=== PATIENT | female | born 1955 | race Caucasian/White ===

== ENCOUNTER → 2016-07-11 | Outpatient (CLI) | payer MEDICARE, OTHER ==
[2016-07-11 12:18] LABS: CH 31.2; CHCM 36.7; HCT 45.3 % (34.0-46.0); HDW 2.86; HGB 15.9 gm/dL (11.4-16.0); MCHC 35.2 g/dL (31.0-37.0); MCV 85.3 fL (80.0-100.0); Mean Platelet Volume 7.4; RBC 5.32 m/uL (3.80-5.40); RDW 12.7 % (11.5-15.5); WBC 5.3 k/uL (3.8-10.6)
[2016-07-11 13:06] LABS: ALT 41 U/L (9-52); AST 31 U/L (14-36); Alkaline Phosphatase 65 U/L (38-126); Anion Gap 9 mmol/L; Blood Urea Nitrogen 12 mg/dL (7-17); Calcium 9.4 mg/dL (8.4-10.2); Carbon Dioxide 27 mmol/L (22-30); Chloride 107 mmol/L (98-107); Cholesterol 152 mg/dL (<200); Glucose 99 mg/dL (74-99); HDL Cholesterol 64 mg/dL (40-60); Hemoglobin A1C 5.1 % (4.2-6.1); Non-African American GFR(MDRD) >60 (>60 ml/min/1.73 sqM); Potassium 4.3 mmol/L (3.5-5.1); Sodium 143 mmol/L (137-145); Total Bilirubin 1.3 mg/dL (0.2-1.3); Total Protein 7.4 g/dL (6.3-8.2); Triglycerides 67 mg/dL (<150)
[2016-07-11 16:52] LABS: Follicle Stimulating Hormone 39.1 mIU/mL
== END | disposition home or self-care (01) ==
LOC: LABWHC1 11:32
PROVIDERS: ATTEND Family Medicine
DX: Z00.00 Encounter for general adult medical examination without abnormal findings (principal); R53.83 Other fatigue; E34.9 Endocrine disorder, unspecified; B19.20 Unspecified viral hepatitis C without hepatic coma; R73.09 Other abnormal glucose; E55.9 Vitamin D deficiency, unspecified; E78.5 Hyperlipidemia, unspecified
CPT/HCPCS: 36415; 80053; 80061; 82306; 82672; 83001; 83002; 83036; 84144; 84403; 84443; 85027

== ENCOUNTER → 2016-09-30 | Outpatient (CLI) | payer MEDICARE, OTHER ==
[2016-10-01 15:09] LABS: LOG HCV IU/mL 6.61 (<1.08)
[2016-10-06 11:07] LABS: Mis test requested (Blood) Hep.C RNA Geno NS5a
== END | disposition home or self-care (01) ==
LOC: LABWHC1 10:37
PROVIDERS: ATTEND Physician Assistant
DX: B18.2 Chronic viral hepatitis C (principal)
CPT/HCPCS: 36415; 87522; 87902

== ENCOUNTER → 2017-02-13 | Outpatient (CLI) | payer MEDICARE, OTHER ==
[2017-02-13 13:32] LABS: CH 31.2; CHCM 36.8; HCT 43.8 % (34.0-46.0); HDW 2.81; HGB 15.8 gm/dL (11.4-16.0); MCH 30.8 pg (25.0-35.0); MCHC 36.1 g/dL (31.0-37.0); MCV 85.1 fL (80.0-100.0); Mean Platelet Volume 7.7; RBC 5.15 m/uL (3.80-5.40); RDW 13.3 % (11.5-15.5); WBC 6.5 k/uL (3.8-10.6)
[2017-02-13 13:39] LABS: ALT 33 U/L (9-52); AST 32 U/L (14-36); Alkaline Phosphatase 91 U/L (38-126); Anion Gap 11 mmol/L; Blood Urea Nitrogen 12 mg/dL (7-17); Calcium 9.7 mg/dL (8.4-10.2); Carbon Dioxide 23 mmol/L (22-30); Chloride 107 mmol/L (98-107); Glucose 94 mg/dL (74-99); Non-African American GFR(MDRD) >60 (>60 ml/min/1.73 sqM); Potassium 4.7 mmol/L (3.5-5.1); Sodium 141 mmol/L (137-145); Total Bilirubin 1.3 mg/dL (0.2-1.3); Total Protein 7.5 g/dL (6.3-8.2)
== END | disposition home or self-care (01) ==
LOC: LABWHC1 12:59
PROVIDERS: ATTEND Internal Medicine Gastroenterology
DX: B18.2 Chronic viral hepatitis C (principal)
CPT/HCPCS: 36415; 80053; 85027

== ENCOUNTER → 2017-05-13 | Outpatient (CLI) | payer MEDICARE, OTHER ==
--- NOTE | 2017-05-13 16:26 | CT ---
EXAMINATION TYPE: CT abdomen pelvis w con DATE OF EXAM: 05/13/2017 COMPARISON: NONE INDICATION: Left ovarian cyst DLP: 669.0 mGycm, Automated exposure control for dose reduction was used. CONTRAST: 100 mL of Omnipaque 300. Study performed with Oral Contrast TECHNIQUE: Axial images were obtained from above the diaphragm to the pubic rami in the axial plane a t 5 mm thick sections. Reconstructed images are reviewed on the computer in the coronal plane. FINDINGS: Limited CT sections are obtained the lung bases. The lung bases are clear. CT ABDOMEN: Liver: Normal Spleen: Normal Pancreas: Normal Adrenal glands: The adrenal glands are normal. Gallbladder: Cholesterol gallstones containing air are present within the gallbladder. Kidneys: No masses are evident. No hydronephrosis is present. No cysts are present. Delayed images were obtained through the kidneys, which remain unremarkable. Aorta: Vascular calcification is within the aorta. Inferior vena cava: Normal. CT PELVIS: Loops of bowel within the abdomen and pelvis are normal. Diverticular changes are within the desc ending colon and sigmoid colon. Appendix: Normal as visualized. Urinary bladder: Normal. Genitourinary structures: Uterus and adnexal regions are unremarkable. Osseous structures: No suspicious lytic or sclerotic lesions. IMPRESSIONS: 1. Diverticulosis without acute diverticulitis.
== END | disposition home or self-care (01) ==
LOC: RADCTMAIN 10:42
PROVIDERS: ATTEND Family Medicine
DX: K57.90 Diverticulosis of intestine, part unspecified, without perforation or abscess without bleeding (principal)
CPT/HCPCS: 74177; Q9967

== ENCOUNTER 2017-08-14 06:59 | Day surgery (SDC) | payer MEDICARE, OTHER ==
[2017-08-11 11:54] VITALS: BMI 29.9
[~2017-08-14 06:59] MED LIST: DEXAMETHASONE SOD PHOSPHATE 10 MG/ML 1 ML VIAL IV ONE; HEPARIN SODIUM,PORCINE 5,000 UNIT/ML 1 ML VIAL SQ ONE; LACTATED RINGERS 1,000 ML IV SCH; MIDAZOLAM 2 MG/2 ML VIAL IV PRN; ONDANSETRON 4 MG/2 ML VIAL IVP ONE; SCOPOLAMINE 1.5MG/72HR PATCH TRANSDERM ONE; ceFAZolin IN SWFI 2 GM/20 ML SYRINGE IVP ONE; fentaNYL (PF) 50 MCG/ML 2 ML AMP IV PRN
--- NOTE | 2017-08-14 07:57 | P.GSHP ---
History of Present Illness H&P Date: 08/14/17 Chief Complaint: Right upper quadrant pain, cholelithiasis This is a 61-year-old female referred from Dr. Sharon Arias. Patient presents today for laparoscopic cholestatic. She's had complaints of right quadrant pain. On workup found have evidence of cholecystitis and cholelithiasis. Past Medical History Past Medical History: Asthma, Liver Disease, Osteoarthritis (OA) Additional Past Medical History / Comment(s): GALLBLADDER DISORDER-frequent abd. pain, gas, bloating, diarrhea, takes beta savage for palpitations, Hx. Hep. C-no sx., recent sinus infection-now resolved History of Any Multi-Drug Resistant Organisms: None Reported Past Surgical History: Joint Replacement, Tubal Ligation Additional Past Surgical History / Comment(s): LT SHOULDER REPLACEMENT-LIMITED USE OF ARM. VARICOSE VEIN SX. COLONOSCOPY Past Anesthesia/Blood Transfusion Reactions: No Reported Reaction Smoking Status: Former smoker - Past Family History Mother Family Medical History: Cancer Medications and Allergies Home Medications Medication Instructions Recorded Confirmed Type Metoprolol Tartrate [Lopressor] 25 mg PO BID 06/18/17 08/14/17 History Montelukast [Singulair] 10 mg PO DAILY 06/18/17 08/11/17 History Albuterol Inhaler [Ventolin Hfa 1 - 2 puff INHALATION Q6HR PRN 08/11/17 History Inhaler] Cetirizine HCl [Zyrtec] 10 mg PO DAILY PRN 08/11/17 08/14/17 History Allergies Allergy/AdvReac Type Severity Reaction Status Date / Time acetaminophen Allergy rash, n/v, Verified 08/14/17 07:09 [From Darvocet-N] shaking, abd pain codeine Allergy rash, n/v, Verified 08/14/17 07:09 shaking, abd pain hydrocodone [From Vicodin] Allergy rash, n/v, Verified 08/14/17 07:09 shaking, abd pain propoxyphene Allergy rash, n/v, Verified 08/14/17 07:09 [From Darvocet-N] shaking, abd pain Surgical - Exam Vital Signs Temp Pulse Resp BP Pulse Ox 96.7 F L 98 16 140/92 100 08/14/17 07:21 08/14/17 07:21 08/14/17 07:21 08/14/17 07:21 08/14/17 07:21 - General well developed, no distress - Eyes PERRL - ENT normal pinna - Neck no masses - Respiratory normal expansion - Cardiovascular Rhythm: regular - Abdomen Abdomen: soft, non tender Assessment and Plan Assessment: Symptomatic cholelithiasis. We'll perform laparoscopic cholecystectomy.
[2017-08-14] MEDS ORDERED: NEOSTIGMINE 1 MG/ML 10 ML VIAL ONE (08:01)
[2017-08-14] MEDS ORDERED: PROPOFOL 10 MG/ML 20 ML VIAL IV ONE (08:01)
[2017-08-14] MEDS ORDERED: ROCURONIUM BROMIDE 10 MG/ML 10 ML VIAL IV ONE (08:01)
[2017-08-14] MEDS ORDERED: MIDAZOLAM 2 MG/2 ML VIAL ONE (08:01)
[2017-08-14] MEDS ORDERED: fentaNYL (PF) 50 MCG/ML 2 ML AMP ONE (08:01)
[2017-08-14] MEDS ORDERED: SUCCINYLCHOLINE CHLORIDE 100 MG/5 ML SYR IV ONE (08:01)
[2017-08-14] MEDS ORDERED: GLYCOPYRROLATE 0.2 MG/ML 2 ML VIAL ONE (08:01)
[2017-08-14] MEDS ORDERED: LIDOCAINE 1% INJ 10MG/ML (20 ML MDV) ONE (08:01)
[2017-08-14] MEDS ORDERED: BUPIVACAINE (PF) 0.5% 30 ML VIAL SQ ONE (08:24)
[2017-08-14 09:01] VITALS: TEMP 97.1
[2017-08-14] MEDS ORDERED: LABETALOL 5 MG/ML VIAL MDV IVP ONE (09:28)
[2017-08-14 10:03] VITALS: RESP 16
[2017-08-14] MEDS ORDERED: LACTATED RINGERS 1,000 ML IV ONE (10:03)
[2017-08-14 10:31] VITALS: BP 118/75; PULSE 73
--- NOTE | 2017-08-21 08:12 | P.OP ---
Date of Procedure: 08/14/17 Preoperative Diagnosis: Cholelithiasis Cholecystitis Postoperative Diagnosis: Cholelithiasis Cholecystitis Procedure(s) Performed: Laparoscopic cholecystectomy Anesthesia: TATO Surgeon: Valeriano Garcia Estimated Blood Loss (ml): 5 Pathology: other (Gallbladder) Condition: stable Disposition: PACU Description of Procedure: The patient was placed on the operating table. The patient received a general endotracheal tube anesthesia. The patients abdomen was prepped and draped in the usual sterile fashion. Through an infraumbilical stab incision, the fascia of the anterior abdominal wall was grasped with a pair of Kochers and then the Veress needle was placed in the peritoneal cavity. Position of the Veress needle was confirmed with positive drop test. The abdomen was then insufflated. After adequate insufflation, the 10 mm trocar was placed in the peritoneal cavity. Following this the laparoscope was placed in the peritoneal cavity. The patient was placed in the head-up, right side up position and then a 5 mm trocar was placed in the right lateral and right subcostal position under direct visualization. A 8 mm trocar was placed in the epigastric position. The gallbladder was grasped in the fundus and infundibulum. Traction on the gallbladder was placed in the lateral and the cephalad positions. The triangle of Calot was visualized.. The cystic duct was bluntly dissected until the union of the cystic duct and common bile duct was seen. The cystic duct was then divided and sealed with the Harmonic scissors. A PDS Endoloop was then placed throughout the cystic duct stump. The cystic artery divided and sealed with the Harmonic scissors. The gallbladder was then removed from the liver bed using Harmonic scissors. The gallbladder was then extracted through the epigastric port site. Operative field was checked for any bleeding spots and Harmonic scissors was used to coagulate the liver bed. The abdomen was irrigated. The trocars were removed. The skin was closed using interrupted 3-0 Vicryl suture. Dermabond dressing were applied. The patient tolerated the procedure well.
== END 2017-08-14 10:56 | disposition home or self-care (01) ==
LOC: OR 06:59
PROVIDERS: ATTEND Surgery
DX: K80.10 Calculus of gallbladder with chronic cholecystitis without obstruction (principal); I10 Essential (primary) hypertension; M19.90 Unspecified osteoarthritis, unspecified site; J45.909 Unspecified asthma, uncomplicated; Z87.891 Personal history of nicotine dependence; Z96.612 Presence of left artificial shoulder joint; Z79.899 Other long term (current) drug therapy; Z88.5 Allergy status to narcotic agent; Z88.8 Allergy status to other drugs, medicaments and biological substances; Z86.19 Personal history of other infectious and parasitic diseases; Z79.51 Long term (current) use of inhaled steroids
CPT/HCPCS: 88304; 47562; J2250; J1644; J1100; J2710; J2405; J2001; J3010; J0330; J2704; J0690

== ENCOUNTER → 2017-09-11 | Outpatient (CLI) | payer MEDICARE, OTHER ==
[2017-09-11 09:59] LABS: HCT 40.7 % (34.0-46.0); HGB 14.9 gm/dL (11.4-16.0); Hyperchromasia Slight; MCH 31.5 pg (25.0-35.0); MCHC 36.6 g/dL (31.0-37.0); Mean Platelet Volume 7.5; Platelet Count 190 k/uL (150-450); RBC 4.73 m/uL (3.80-5.40); RDW 13.1 % (11.5-15.5); WBC 10.3 k/uL (3.8-10.6)
[2017-09-11 10:07] LABS: ALT 42 U/L (9-52); AST 35 U/L (14-36); Albumin 4.2 g/dL (3.5-5.0); Alkaline Phosphatase 80 U/L (38-126); Anion Gap 12 mmol/L; Blood Urea Nitrogen 14 mg/dL (7-17); Calcium 9.8 mg/dL (8.4-10.2); Carbon Dioxide 27 mmol/L (22-30); Chloride 107 mmol/L (98-107); Glucose 119 mg/dL (74-99); Potassium 4.4 mmol/L (3.5-5.1); Sodium 146 mmol/L (137-145); Total Bilirubin 1.4 mg/dL (0.2-1.3); Total Protein 7.1 g/dL (6.3-8.2)
[2017-09-14 09:55] LABS: Hepatits C Virus RNA DETECTED (Not detected); LOG HCV IU/mL 5.94 (<1.08)
== END | disposition home or self-care (01) ==
LOC: LABWHC1 09-07 13:52
PROVIDERS: ATTEND Internal Medicine Gastroenterology
DX: B18.2 Chronic viral hepatitis C (principal)
CPT/HCPCS: 36415; 80053; 82172; 82247; 82977; 83010; 83883; 84460; 85027; 87522

== ENCOUNTER → 2017-10-26 | Outpatient (CLI) | payer MEDICARE, OTHER ==
[2017-10-26 14:50] LABS: HCT 43.5 % (34.0-46.0); HGB 14.9 gm/dL (11.4-16.0); MCH 29.1 pg (25.0-35.0); MCHC 34.4 g/dL (31.0-37.0); MCV 84.6 fL (80.0-100.0); Mean Platelet Volume 7.8; Platelet Count 196 k/uL (150-450); RBC 5.14 m/uL (3.80-5.40); RDW 12.3 % (11.5-15.5); WBC 6.7 k/uL (3.8-10.6)
[2017-10-26 15:05] LABS: Bilirubin, Delta 0.4 mg/dL (0.0-0.2); Bilirubin,Unconjugated 0.1 mg/dL (0.0-1.1); Total Bilirubin 0.5 mg/dL (0.2-1.3); Total Protein 6.7 g/dL (6.3-8.2)
[2017-10-27 14:49] LABS: Hepatits C Virus RNA DETECTED (Not detected); Hepatits C Virus RNA, Quant <12 IU/mL (<12); LOG HCV IU/mL <1.08 (<1.08)
== END | disposition home or self-care (01) ==
LOC: LABWHC1 14:29
PROVIDERS: ATTEND Physician Assistant
DX: B18.2 Chronic viral hepatitis C (principal)
CPT/HCPCS: 36415; 80076; 85027; 87522

== ENCOUNTER → 2018-04-06 | Outpatient (CLI) | payer MEDICARE, OTHER ==
--- NOTE | 2018-04-06 16:07 | CONS ---
CONSULTATION REASON FOR CONSULTATION: Sleep apnea. This is a 62-year-old female patient who is having episodes of palpitation. This has been an ongoing chronic problem for which the patient has seen Cardiology, and other secondary causes have been ruled out, including cardiac disease. Currently she is on metoprolol 25 mg twice a day and she is also on flecainide 50 mg twice a day. She has not been told that she has any problems with atrial fibrillation or any other atrial arrhythmias. During a recent evaluation by her careers adviser, sleep apnea was considered and the patient was referred to me for further evaluation. She does snore. She has excessive tiredness and sleepiness during the day and she has some degree of nocturia. She wakes up with a dry mouth and she has palpitations, as mentioned. She goes to bed somewhere between 11 p.m. and midnight and she wakes up at 8 a.m. in the morning. She averages around 8 hours of sleep. She wakes up once or twice in the middle of the night to use the bathroom. She sleeps on her side and her weight has been stable. She drinks coffee socially. No history of alcoholism. No history of IV drugs. No history of substance abuse. Family history is positive for sleep apnea, as her son, who is 44 years of age, is currently being treated for RUDDY. She is able to drive a car without any difficulty. She does not fall asleep while driving, nor has she been involved in a motor vehicle accident. PAST MEDICAL HISTORY: Palpitations. PAST SURGICAL HISTORY: 1. Tubal ligation. 2. Left shoulder replacement. 3. Cholecystectomy. DRUG ALLERGIES: 1. VICODIN. 2. CODEINE. 3. DARVOCET. MEDICATIONS: Medications include: 1. Metoprolol. 2. Singulair. 3. Flecainide. 4. Vitamin C. 5. Vitamin D. 6. Ventolin. SOCIAL HISTORY: Nonsmoker. No history of alcoholism. No history of IV drugs. FAMILY HISTORY: Positive for obstructive sleep apnea. Patient's son is 44 and has RUDDY. REVIEW OF SYSTEMS: Twelve-point review of systems was done. Positive findings are mentioned above in the history of present illness. No heartburn. No sweating. No sleeptalking. No sleepwalking. No restlessness in the lower extremities. No grinding of the teeth. No insomnia. No choking or gasping sensation at nighttime. No anxiety. No claustrophobia. No sexual dysfunction. No depression. No problems with memory or concentration. No history of seizures. No history of any focal neurological deficit or stroke. No altered mentation. PHYSICAL EXAMINATION: BP is 126/78, pulse 63, respirations 16, temperature 97.9, saturation 96% on room air. Weight is 183, height 5 feet 5 inches, BMI 30.4, Bolton score 7, neck size 14. GENERAL APPEARANCE: Calm, comfortable. Head is atraumatic, normocephalic. NECK: Supple. Mallampati class IV. No goiter or neck masses. She has also an overbite. LUNGS: Clear to auscultation. HEART: Heart sounds are regular rate and rhythm. Normal S1, S2. No S3. No murmurs. ABDOMEN: Soft, nontender. No organomegaly. EXTREMITIES: No edema. No cyanosis or clubbing. IMPRESSION: 1. Palpitations, chronic, under treatment currently on a combination of metoprolol and flecainide. No reported history of any cardiac tachyarrhythmias. 2. Snoring with increased daytime fatigue and suspected obstructive sleep apnea, currently under investigation. 3. Mallampati class IV. 4. Overbite. 5. Bronchial asthma. PLAN: 1. Will set up this patient for a screening polysomnogram, looking for any significant sleep breathing disorder contributing to her symptoms of palpitations. We will also look for any atrial tachyarrhythmias that could be potentially associated with sleep breathing disorders. 2. Encourage weight loss. 3. Sleep on the side. 4. Keep the head of the bed elevated during sleep. 5. Will continue to follow. MMODL / IJN: [id number] /
== END | disposition home or self-care (01) ==
LOC: SLEEP 14:14
PROVIDERS: ATTEND Internal Medicine Critical Care Medicine
DX: J45.909 Unspecified asthma, uncomplicated (principal); M26.29 Other anomalies of dental arch relationship; R00.2 Palpitations; R06.83 Snoring; R53.83 Other fatigue; Z79.899 Other long term (current) drug therapy; Z79.891 Long term (current) use of opiate analgesic; Z98.890 Other specified postprocedural states; Z90.49 Acquired absence of other specified parts of digestive tract
CPT/HCPCS: 99211

== ENCOUNTER → 2018-08-03 | Outpatient (CLI) | payer MEDICARE, OTHER ==
--- NOTE | 2018-08-03 17:21 | PN ---
PROGRESS NOTE This 62-year-old female patient has been complaining of palpitations. For that reason she was referred to me. Her palpitations are settled by the use of metoprolol and flecainide. Meanwhile, a sleep study was conducted. The sleep study report was given separately. In summary, the patient demonstrated adequate sleep architecture. The patient demonstrated adequate sleep efficiency. The patient demonstrated very mild obstructive sleep apnea an AHI of 5.7 that was essentially nonspecific. The cardiac rhythm was sinus. There were no cardiac arrhythmias noted. On today's evaluation, the results of the sleep study were discussed. The patient is not having any significant hypersomnia or sleepiness during the day. No significant oral dryness. She claims that she has gained at least 40-45 pounds and she is significantly up compared to her original body weight; and this has accumulated over the years. She has been trying to lose weight. No hypersomnia or sleepiness. She does not fall asleep during day-to-day activities or driving a car or while talking to other individuals. Asthma is stable. REVIEW OF SYSTEMS: Twelve-point review of systems was done. Positive findings were all mentioned above in the history of present illness. Of significance is the improvement in her symptoms of palpitations. No shortness of breath, heartburn or chest pain overnight. No altered mentation. No headaches. No drowsiness. No sleepiness. No sleepwalking or sleeptalking. No restlessness in the lower extremities. PHYSICAL EXAMINATION: BP is 129/76, pulse 64, respirations 16, temperature 98.0, saturation 96% on room air. Weight is 187, height 5 feet 5 inches, BMI 31.1. GENERAL APPEARANCE: Calm, comfortable. Head is atraumatic, normocephalic. NECK: Supple. No JVD. No goiter or neck masses. Mallampati class IV. LUNGS: Clear to auscultation. HEART: Heart sounds are regular rate and rhythm. Normal S1, S2. No S3, S4. No murmurs. ABDOMEN: Soft, nontender. No organomegaly. EXTREMITIES: No edema. No cyanosis or clubbing. NEUROLOGIC: Alert and oriented x3. No focal neurological deficits. PSYCHIATRIC: Negative for anxiety or depression. IMPRESSION: 1. Mild obstructive sleep apnea with apnea/hypopnea index of 5.7, REM-specific. 2. Minimal nocturnal oxygen desaturation. 3. Normal sleep architecture. 4. Primary snoring. 5. Palpitations without any significant cardiac arrhythmias as noted on the polysomnogram. 6. Normal sleep efficiency at 89%. PLAN: I do not intent to treat this patient with CPAP. I advised her to lose weight. Ten percent loss in her body weight should cause significant improvement in the sleep- breathing disorder which is mild in severity at baseline, and she should be able to completely eliminate her sleep apnea by losing weight. I do not see the need for any other alternative treatment at this point in time. If symptoms of snoring and apnea are still a concern, she may be evaluated for an oral appliance through her dentist. For the most part, I had a lengthy discussion with her, and she interested in losing weight. She will contact us back in a year's time for re-evaluation. CPAP therapy can always be introduced if her symptoms get worse. She was agreeable to this approach. We will see her back in followup. NATE / DEEPIKA: [id number] /
== END | disposition home or self-care (01) ==
LOC: SLEEP 15:06
PROVIDERS: ATTEND Internal Medicine Critical Care Medicine
DX: G47.33 Obstructive sleep apnea (adult) (pediatric) (principal); R00.2 Palpitations; R63.5 Abnormal weight gain; J45.909 Unspecified asthma, uncomplicated; Z68.31 Body mass index [BMI] 31.0-31.9, adult

== ENCOUNTER → 2018-09-01 | Outpatient (CLI) | payer MEDICARE, OTHER ==
[2018-09-01 15:02] LABS: HGB 15.1 gm/dL (11.4-16.0); MCH 30.4 pg (25.0-35.0); MCHC 34.2 g/dL (31.0-37.0); Mean Platelet Volume 6.9; Platelet Count 207 k/uL (150-450); RBC 4.95 m/uL (3.80-5.40); RDW 13.1 % (11.5-15.5); WBC 6.7 k/uL (3.8-10.6)
[2018-09-01 18:40] LABS: Albumin 4.2 g/dL (3.80-4.90); Albumin/Globulin Ratio 1.83 (1.60-3.17); Bilirubin, Conjugated 0.3 mg/dL (0.20-0.40); Bilirubin,Unconjugated 0.5 mg/dL; Globulin 2.3 g/dL (1.6-3.3); Total Bilirubin 0.8 mg/dL (0.2-1.2); Total Protein 6.5 g/dL (6.2-8.2)
[2018-09-02 13:57] LABS: Hepatits C Virus RNA Not detected (Not detected); Hepatits C Virus RNA, Quant <12 IU/mL (<12); LOG HCV IU/mL <1.08 (<1.08)
== END ==
LOC: LABWHC1 13:58
PROVIDERS: ATTEND Internal Medicine Gastroenterology
DX: B18.2 Chronic viral hepatitis C (principal)
CPT/HCPCS: 36415; 80076; 82105; 85027; 87522

== ENCOUNTER → 2019-02-02 | Outpatient (CLI) | payer MEDICARE, OTHER ==
[2019-02-02 18:20] LABS: African American GFR (CKD) 68.9 (60.0-200.0); Albumin 4.2 g/dL (3.80-4.90); Albumin/Globulin Ratio 1.83 (1.60-3.17); Anion Gap 6.7 mmol/L (4.00-12.00); Calcium 9.3 mg/dL (8.7-10.3); Carbon Dioxide 29.3 mmol/L (21.6-31.8); Globulin 2.3 g/dL (1.6-3.3); Potassium 4.3 mmol/L (3.5-5.5); Total Protein 6.5 g/dL (6.2-8.2)
== END | disposition home or self-care (01) ==
LOC: LABWHC1 14:11
PROVIDERS: ATTEND Internal Medicine Interventional Cardiology
DX: I10 Essential (primary) hypertension (principal)
CPT/HCPCS: 36415; 80053

== ENCOUNTER → 2019-02-22 | Outpatient (CLI) | payer MEDICARE, OTHER ==
--- NOTE | 2019-02-23 04:36 | CT ---
EXAMINATION TYPE: CT abdomen pelvis wo con DATE OF EXAM: 02/22/2019 COMPARISON: 05/13/2017 HISTORY: 63-year-old female right-sided abdominal pain, lower pelvic bloating and diarrhea. CT DLP: 841 mGycm. Automated exposure control for dose reduction was used. TECHNIQUE: Contiguous axial scanning of the abdomen and pelvis without IV contrast. Coronal and sagit liliana reconstructions performed. FINDINGS: The heart is borderline enlarged without pericardial effusion. Strandy atelectasis lower lungs withou t pleural effusion. Limited noncontrast evaluation of the liver, adrenal glands, kidneys, spleen, and pancreas show no gr oss abnormality. Punctate density gallbladder fossa may relate to prior cholecystectomy. No dilated small bowel, free fluid, or free air. Appendix is not discretely identified. Generalized colonic diverticulosis with mild to moderate stool burden. No pericolonic inflammatory ch everardo. No mesenteric or retroperitoneal lymphadenopathy identified. There is a 1.8 cm fusiform hypodense str ucture in the right retrocrural space that seen previously. Suspect a dilated lymphatic channel/ciste rna chyli in the right retrocrural space. Follow-up can be performed as this was not seen previously. Prominent fluid filled small bowel loops hanging low in the pelvis. Bladder nondistended. Uterus and ovaries are visualized. Slight pelvic floor relaxation with the base of bladder projecting at or just below the pubococcygeal line. Surgical clips in the right inguinal region. Some varices noted here. No abnormal fluid collection the pelvis or pelvic lymphadenopathy. Bones: Degenerative disc disease L5-S1. No osseous destructive process. IMPRESSION: 1. Prominent fluid-filled small bowel loops angle in the pelvis. Correlate for nonspecific mild ente ritis. 2. Slight pelvic floor relaxation. 3. Dilated fusiform structure measuring 1.8 cm in the right retrocrural space not seen previously. S uspect a distended cisterna chyli. Short interval follow-up recommended as this was not seen previous ly. 4. Generalized colonic diverticulosis without evidence for acute diverticulitis.
== END | disposition home or self-care (01) ==
LOC: RADCTMAIN 12:53
PROVIDERS: ATTEND Family Medicine
DX: K57.30 Diverticulosis of large intestine without perforation or abscess without bleeding (principal); K59.8 Other specified functional intestinal disorders; R10.2 Pelvic and perineal pain; R14.0 Abdominal distension (gaseous)
CPT/HCPCS: 74176

== ENCOUNTER → 2019-03-07 | Outpatient (CLI) | payer MEDICARE, OTHER ==
[2019-03-07 12:59] LABS: HCT 42.2 % (34.0-46.0); HGB 15.3 gm/dL (11.4-16.0); MCH 30.8 pg (25.0-35.0); MCHC 36.2 g/dL (31.0-37.0); MCV 85.2 fL (80.0-100.0); Mean Platelet Volume 7.1; Platelet Count 188 k/uL (150-450); RBC 4.96 m/uL (3.80-5.40); RDW 12.7 % (11.5-15.5); WBC 6.5 k/uL (3.8-10.6)
[2019-03-07 19:28] LABS: Albumin 4.2 g/dL (3.80-4.90); Bilirubin, Conjugated 0.2 mg/dL (0.20-0.40); Bilirubin,Unconjugated 0.6 mg/dL; Globulin 2.1 g/dL (1.6-3.3); Total Bilirubin 0.8 mg/dL (0.3-1.2); Total Protein 6.3 g/dL (6.2-8.2)
[2019-03-07 19:32] LABS: Alpha Fetoprotein, Tumor Mkr <2.5 ng/mL (0.0-7.9)
[2019-03-07 21:14] LABS: Gliadin AB IgA, Deaminated NEGATIVE (NEGATIVE); Gliadin AB IgG, Deaminated NEGATIVE (NEGATIVE)
== END | disposition home or self-care (01) ==
LOC: LABWHC1 12:32
PROVIDERS: ATTEND Internal Medicine Gastroenterology
DX: K58.9 Irritable bowel syndrome, unspecified (principal); B18.2 Chronic viral hepatitis C
CPT/HCPCS: 36415; 80076; 82105; 83516; 85027

== ENCOUNTER → 2019-03-24 | Outpatient (CLI) | payer MEDICARE, OTHER ==
--- NOTE | 2019-03-24 13:04 | US ---
EXAMINATION TYPE: US liver DATE OF EXAM: 03/24/2019 COMPARISON: Ultrasound dated 09/20/2015 CLINICAL HISTORY: B18.2 CHR VIRAL HEP C. Hx Hepatitis C. NPO. GB removed. EXAM MEASUREMENTS: Liver Length: 17.4 cm CBD: 0.4 cm Right Kidney: 9.5 x 3.7 x 4.4 cm Pancreas: Tail obscured by overlying bowel gas. Liver: Very mildly coarsened echotexture. No discrete mass is seen. Gallbladder: Surgically absent Evidence for sonographic Chacon's sign: wnl CBD: wnl Right Kidney: wnl IMPRESSION: Very mild coarsened hepatic echotexture. This relates to the patient's known underlying h epatocellular disease. No suspicious mass is seen.
== END | disposition home or self-care (01) ==
LOC: RADUSWWP 12:28
PROVIDERS: ATTEND Internal Medicine Gastroenterology
DX: K76.89 Other specified diseases of liver (principal); B18.2 Chronic viral hepatitis C
CPT/HCPCS: 76705

== ENCOUNTER → 2020-01-05 | Outpatient (CLI) | payer MEDICARE ==
[2020-01-05 11:11] LABS: HCT 43.5 % (34.0-46.0); HGB 15.3 gm/dL (11.4-16.0); MCH 31.1 pg (25.0-35.0); MCHC 35.1 g/dL (31.0-37.0); MCV 88.6 fL (80.0-100.0); Mean Platelet Volume 7.9; Platelet Count 155 k/uL (150-450); RBC 4.91 m/uL (3.80-5.40); WBC 5.7 k/uL (3.8-10.6)
[2020-01-05 11:31] LABS: Appearance,Urine Clear (Clear); Bilirubin,Urine Negative (Negative); Blood,Urine Negative (Negative); Color,Urine Light Yellow; Glucose,Urine (UA) Negative (Negative); Ketones,Urine Negative (Negative); Leukocyte Esterase,Urine Trace (Negative); Nitrite,Urine Negative (Negative); PH, Urine 7.5 (5.0-8.0); Protein,Urine Negative (Negative); RBC,Urine <1 /hpf (0-5); Specific Gravity,Urine 1.006 (1.001-1.035); Squamous Epithelial Cell,Urine 1 /hpf (0-4); Urobilinogen,Urine <2.0 mg/dL (<2.0); WBC,Urine <1 /hpf (0-5)
[2020-01-05 16:51] LABS: African American GFR (CKD) 77.8 (60.0-200.0); Anion Gap 6.9 mmol/L (4.00-12.00); BUN/Creat Ratio 14.44 Ratio (12.00-20.00); Calcium 9.3 mg/dL (8.7-10.3); Carbon Dioxide 27.1 mmol/L (21.6-31.8); Chol/HDL Ratio 2.75; LDL Cholesterol,Calculated 74.2 mg/dL (0.0-131.0); Non-African American GFR(CKD) 67.1 (60.0-200.0); Potassium 4.4 mmol/L (3.5-5.5); VLDL Calculation 14.8 mg/dL (5.00-40.00)
[2020-01-05 19:51] LABS: Hemoglobin A1C 5.2 % (4.0-6.0)
== END | disposition home or self-care (01) ==
LOC: LABWHC1 10:05
PROVIDERS: ATTEND Family Medicine
DX: Z00.00 Encounter for general adult medical examination without abnormal findings (principal); Z79.899 Other long term (current) drug therapy; R03.0 Elevated blood-pressure reading, without diagnosis of hypertension; Z83.49 Family history of other endocrine, nutritional and metabolic diseases
CPT/HCPCS: 36415; 80048; 80061; 81001; 83036; 84443; 85027

== ENCOUNTER → 2020-03-07 | Outpatient (CLI) | payer MEDICARE ==
[2020-03-07 11:01] LABS: HCT 44.8 % (34.0-46.0); HGB 15.7 gm/dL (11.4-16.0); MCH 30.4 pg (25.0-35.0); MCV 86.9 fL (80.0-100.0); Mean Platelet Volume 7.8; Platelet Count 193 k/uL (150-450); RBC 5.15 m/uL (3.80-5.40); RDW 12.7 % (11.5-15.5); WBC 6.8 k/uL (3.8-10.6)
[2020-03-07 18:49] LABS: Albumin 4.1 g/dL (3.80-4.90); Albumin/Globulin Ratio 1.86 (1.60-3.17); Bilirubin, Conjugated 0.4 mg/dL (0.20-0.40); Bilirubin,Unconjugated 0.7 mg/dL; Globulin 2.2 g/dL (1.6-3.3); Total Bilirubin 1.1 mg/dL (0.2-1.2); Total Protein 6.3 g/dL (6.2-8.2)
== END | disposition home or self-care (01) ==
LOC: LABWHC1 09:28
PROVIDERS: ATTEND Internal Medicine Gastroenterology
DX: B18.2 Chronic viral hepatitis C (principal)
CPT/HCPCS: 36415; 80076; 82105; 85027

== ENCOUNTER → 2020-03-30 | Outpatient (CLI) | payer MEDICARE ==
--- NOTE | 2020-03-30 13:15 | US ---
EXAMINATION TYPE: US liver DATE OF EXAM: 03/30/2020 COMPARISON: CT February 22, 2019 CLINICAL HISTORY: B18.2 Chronic Viral Hep C. TREATED FOR HEP C 2 YEARS AGO, FOLLOW UP EXAM, NO SYMPTO MS EXAM MEASUREMENTS: Liver Length: 14.2 cm Gallbladder Wall: Surgically absent CBD: 0.7 cm Right Kidney: 9.4 x 4.1 x 3.7 cm Pancreas: wnl Liver: wnl Gallbladder: Surgically absent Evidence for sonographic Chacon's sign: no CBD: normal for post cholecystectomy Right Kidney: wnl Visualized pancreas is unremarkable. IVC seen near hepatic dome. Visualized liver shows no mass or du ctal dilatation. No surrounding ascites. Gallbladder redemonstrated surgically absent. No right-sided hydronephrosis. IMPRESSION: No worrisome intrahepatic mass or intrahepatic ductal dilatation.
== END | disposition home or self-care (01) ==
LOC: RADUSWWP 11:50
PROVIDERS: ATTEND Internal Medicine Gastroenterology
DX: B18.2 Chronic viral hepatitis C (principal)
CPT/HCPCS: 76705

== ENCOUNTER → 2020-07-30 | Outpatient (CLI) | payer MEDICARE ==
--- NOTE | 2020-07-31 06:52 | CT ---
EXAMINATION TYPE: CT abdomen pelvis wo/w con DATE OF EXAM: 07/30/2020 HISTORY: Abnormal CT scan, right-sided pain with change in bowel habits CT DLP: 1262mGycm Automated Exposure Control for Dose Reduction was Utilized. CONTRAST: CT scan of the abdomen and pelvis is performed with oral and without and with IV Contrast, patient in jected with 100 mL of Isovue 300. COMPARISON: CT abdomen and pelvis February 22, 2019 and older CTs May 13, 2017 FINDINGS: LUNG BASES: Mild left greater than right bibasilar linear scarring and/or atelectasis. Heart size upp er limits of normal. LIVER/GB: Cholecystectomy clips redemonstrated PANCREAS: No significant abnormality is seen. SPLEEN: No significant abnormality is seen. ADRENALS: No significant abnormality is seen. KIDNEYS: No renal stones on noncontrast CT. Postcontrast images show symmetric cortical medullary upt ramila and excretion without concerning renal mass or hydronephrosis seen bilaterally. BOWEL: Oral contrast reaches level of proximal to mid sigmoid colon. No suspicious small or large bow el dilatation. Diverticula in the left and sigmoid colon are present. No CT evidence for acute divert iculitis UTERUS/ADNEXA: Anteverted uterus. Normal-sized ovaries. Single left-sided pelvic phlebolith. LYMPH NODES: No new greater than 1cm abdominal or pelvic lymph nodes are appreciated. OSSEOUS STRUCTURES: Moderate disc space narrowing with vacuum disc phenomenon and lower lumbar levels .. OTHER: Stable 1.1 cm low dense round structure right retrocrural space axial image 12, presumed benig n, possible distended cisterna chyli. IMPRESSION: No new or acute findings are evident. Persistent distal colonic diverticulosis without CT evidence for acute diverticulitis.
== END | disposition home or self-care (01) ==
LOC: RADCTMAIN 15:15
PROVIDERS: ATTEND Family Medicine
DX: K57.30 Diverticulosis of large intestine without perforation or abscess without bleeding (principal)
CPT/HCPCS: 74178; Q9967 ×2

== ENCOUNTER → 2020-10-23 | Outpatient (CLI) | payer MEDICARE ==
--- NOTE | 2020-10-23 14:38 | MM ---
Reason for exam: clinical finding. Last mammogram was performed 6 months ago. History: Patient is postmenopausal. Family history of breast cancer in mother at age 65. Benign cyst aspiration of the left breast. Benign excisional biopsy of the right breast. Indicated problem(s): pain in the left breast. Physical Findings: Nurse did not find any significant physical abnormalities on exam. MG 3D Diag Mammo W/Cad LT CC and MLO view(s) were taken of the left breast. Prior study comparison: April 10, 2020, mammogram. March 30, 2018, mammogram. There are scattered fibroglandular densities. There is no discrete abnormality including area of concern. No significant new findings when compared with previous films. These results were verbally communicated with the patient and result sheet given to the patient on 10/23/20. ASSESSMENT: Benign, BI-RAD 2 RECOMMENDATION: Routine screening mammogram of both breasts in 1 year. Manage on a clinical basis with regard to pain.
--- NOTE | 2020-10-23 15:06 | XR ---
EXAMINATION TYPE: XR wrist complete RT DATE OF EXAM: 10/23/2020 COMPARISON: None HISTORY: Injury 2 weeks prior TECHNIQUE: 4 view right wrist FINDINGS: No acute fractures are identified. There appears to be some degenerative change of the trap ezium. Soft tissues appear normal. The distal carpal row laterally has some degenerative change. Follow up exams can be performed 7-10 days from acute trauma for continued pain. Nuclear medicine bon e scan could be performed for pain at the anatomic snuff box. IMPRESSION: 1. No acute osseous abnormality identified. 2. Lateral carpal degenerative joint changes.
== END ==
LOC: RADMAMWWP 13:34
PROVIDERS: ATTEND Family Medicine
DX: R92.8 Other abnormal and inconclusive findings on diagnostic imaging of breast (principal); M19.031 Primary osteoarthritis, right wrist
CPT/HCPCS: 73110; 77065; G0279; 77061

== ENCOUNTER → 2021-03-13 | Outpatient (CLI) | payer MEDICARE ==
[2021-03-13 18:54] LABS: MCH 30.9 pg (27.0-32.0); MCHC 35.7 g/dL (32.0-37.0); MCV 86.6 fL (80.0-97.0); Mean Platelet Volume 10.5 fL (9.5-12.2); Platelet Count 191 X 10*3/uL (140-440); RBC 4.85 X 10*6/uL (4.10-5.20); RDW 12.7 % (11.5-14.5); WBC 6.68 X 10*3/uL (4.50-10.00)
[2021-03-14 03:22] LABS: Albumin/Globulin Ratio 1.6 (1.60-3.17); Bilirubin, Conjugated 0.3 mg/dL (0.20-0.40); Bilirubin,Unconjugated 0.4 mg/dL; Globulin 2.5 g/dL (1.6-3.3); Total Bilirubin 0.7 mg/dL (0.2-1.2); Total Protein 6.5 g/dL (6.2-8.2)
== END | disposition home or self-care (01) ==
LOC: LABWHC1 12:50
PROVIDERS: ATTEND Internal Medicine Gastroenterology
DX: B18.2 Chronic viral hepatitis C (principal)
CPT/HCPCS: 36415; 80076; 82105; 85027

== ENCOUNTER → 2022-03-17 | Outpatient (CLI) | payer MEDICARE ==
[2022-03-17 15:06] LABS: HCT 42.7 % (37.2-46.3); HGB 15.1 g/dL (12.0-15.0); MCH 29.8 pg (27.0-32.0); MCHC 35.4 g/dL (32.0-37.0); MCV 84.2 fL (80.0-97.0); Mean Platelet Volume 10.7 fL (9.5-12.2); NRBC Per 100 WBC 0 /100 WBCS (0.0-0.0); Platelet Count 210 X 10*3/uL (140-440); RBC 5.07 X 10*6/uL (4.10-5.20); RDW 13.2 % (11.5-14.5); WBC 6.08 X 10*3/uL (4.50-10.00)
[2022-03-17 15:22] LABS: ALT 13 U/L (8-44); AST 26 U/L (13-35); Albumin 4.2 g/dL (3.8-4.9); Albumin/Globulin Ratio 1.35 (1.60-3.17); Alkaline Phosphatase 75 U/L (41-126); Bilirubin, Conjugated <0.20 mg/dL (0.20-0.40); Globulin 3.1 g/dL (1.6-3.3); Total Protein 7.3 g/dL (6.2-8.2)
== END | disposition home or self-care (01) ==
LOC: LABWHC1 11:00
PROVIDERS: ATTEND Internal Medicine Gastroenterology
DX: B18.2 Chronic viral hepatitis C (principal)
CPT/HCPCS: 36415; 80076; 82105; 85027

== ENCOUNTER → 2022-07-02 | Outpatient (CLI) | payer MEDICARE ==
--- NOTE | 2022-07-02 10:52 | US ---
EXAMINATION TYPE: US liver DATE OF EXAM: 07/02/2022 COMPARISON: NONE CLINICAL HISTORY: B18.2 chronic hep c. TECHNIQUE: Multiple sonographic images of the right upper quadrant are obtained. FINDINGS: EXAM MEASUREMENTS: Liver Length: 17.8 cm Gallbladder Wall: Surgically absent CBD: 0.7 cm Right Kidney: 9.8 x 4.0 x 4.4 cm Pancreas: Tail obscured by overlying bowel gas Liver: measures upper limits of normal, mildly heterogenous Gallbladder: Surgically absent Evidence for sonographic Chacon's sign: no CBD: wnl Right Kidney: somewhat obscured by overlying bowel gas, portions visualized wnl IMPRESSION: Hepatocellular disease likely secondary to patient's known hepatitis C. No suspicious masses.
== END | disposition home or self-care (01) ==
LOC: RADUSWWP 09:28
PROVIDERS: ATTEND Internal Medicine Gastroenterology
DX: B18.2 Chronic viral hepatitis C (principal); K76.9 Liver disease, unspecified
CPT/HCPCS: 76705

== ENCOUNTER → 2022-11-10 | Outpatient (CLI) | payer MEDICARE ==
--- NOTE | 2022-11-10 11:10 | US ---
EXAMINATION TYPE: US thyroid st tissue head/neck DATE OF EXAM: 11/10/2022 COMPARISON: NONE CLINICAL INDICATION: Female, 66 years old with history of E01.0 THYROMEGALY; primary care physician p alpated lump on pt. neck GLAND SIZE: Right Lobe: 4.9x2.6x2.3 cm Overall Parenchyma: heterogenous Left Lobe: 3.9x1.3x1.3 cm Overall Parenchyma: heterogenous Isthmus Thickness: 0.46 cm NODULES RIGHT: # of nodules measured on right: 1 1. 3.2 X 2.1 x 2.8 cm, mid mid, cystic or almost completely cystic, anechoic TR 3 nodule with septa tion, which is taller than wide, with smooth margins, without echogenic foci. LEFT: # of nodules measured on left: 2 1. 0.51 X 0.33 x 0.45 cm, upper mid, solid or almost completely solid, TR 4 hypoechoic nodule, whic h is taller than wide, with smooth margins, without echogenic foci. 2. 0.72 X 0.43 x 0.47 cm, lower mid, solid or almost completely solid, hypoechoic TR 4 nodule, whi ch is taller than wide, with smooth margins, without echogenic foci. Bilateral neck scanned, no evidence of lymphadenopathy. Gut Puller notes: Three most prominent nodules measured, several noted throughout, right lobe diffic ult to appreciate due to large nodule IMPRESSION: Thyroid ultrasound showing a few dominant nodules, the largest is a cystic 3.2 cm TR3 nodule on the r ight. FNA can be considered. A couple small TR4 nodules on the left measure 7 mm and 5 mm which can b e reassessed at follow-up.
== END | disposition home or self-care (01) ==
LOC: RADUSWWP 09:35
PROVIDERS: ATTEND Family Medicine
DX: E04.2 Nontoxic multinodular goiter (principal)
CPT/HCPCS: 76536

== ENCOUNTER → 2022-11-11 | Outpatient (CLI) | payer MEDICARE ==
--- NOTE | 2022-11-11 14:19 | CT ---
EXAMINATION TYPE: CT abdomen pelvis wo con CT DLP: 693.0 mGycm, Automated exposure control for dose reduction was used. DATE OF EXAM: 11/11/2022 12:56 PM COMPARISON: CT abdomen pelvis most recent from 07/30/2020, 02/22/2019 CLINICAL INDICATION:Female, 66 years old with history of R10.13 R10.9; epigastric/ right flank pain TECHNIQUE: Axial CT of the abdomen and pelvis. Sagittal and coronal reformats were created on a [employer] workstation. Contrast used: None Oral contrast used: without Oral none FINDINGS: LOWER CHEST: Left lower lobe pulmonary nodule measuring 4 mm stable back to at least 2019 ABDOMEN LIVER: Unremarkable GALLBLADDER AND BILE DUCTS: The gallbladder appears surgically absent. PANCREAS: Unremarkable. SPLEEN: Unremarkable. ADRENAL GLANDS: Unremarkable. KIDNEYS AND URETERS: No evidence of hydronephrosis or renal calculus. The ureters are unremarkable. PELVIS BLADDER: Unremarkable REPRODUCTIVE: Unremarkable. ABDOMEN & PELVIS STOMACH AND BOWEL: . Scattered diverticula are noted throughout the colon. No evidence of bowel obstr uction. The appendix was not definitively visualized. Small hiatal hernia present. PERITONEUM/RETROPERITONEUM: No evidence of pneumoperitoneum or free fluid. VASCULATURE: No evidence of aortic aneurysm. There is a dilated cisterna chyli at the level of the ao rtic hiatus. MUSCULOSKELETAL: No acute osseous abnormalities LYMPH NODES: No gross evidence for lymphadenopathy. SOFT TISSUE/ABDOMINAL WALL: Postsurgical change the right inguinal region with multiple surgical clip s. Tortuous vessels are seen in the anterior aspect of the bilateral lower extremities. Fat-containin g umbilical hernia. IMPRESSION: 1. No evidence for acute process in the epigastric region. There is a small hiatal hernia. 2. Scattered colonic diverticulosis. 3. Stable left lower lobe pulmonary nodule dating back to at least 2019.
== END | disposition home or self-care (01) ==
LOC: RADCTMAIN 12:17
PROVIDERS: ATTEND Family Medicine
DX: K57.30 Diverticulosis of large intestine without perforation or abscess without bleeding (principal); R91.1 Solitary pulmonary nodule; K44.9 Diaphragmatic hernia without obstruction or gangrene
CPT/HCPCS: 74176

== ENCOUNTER → 2022-12-24 | Outpatient (CLI) | payer MEDICARE ==
--- NOTE | 2022-12-25 08:08 | MM ---
Reason for Exam: Screening (asymptomatic). Last mammogram was performed 1 year(s) and 1 month(s) ago. Patient History: Menarche at age 14. First Full-Term at age 18. Postmenopausal. Benign Cyst Aspiration on the left side. Benign Excisional Biopsy on the right side. Mother had breast cancer, age 65. Risk Values: Emili 5 year model risk: 3.4%. NCI Lifetime model risk: 10.8%. Prior Study Comparison: 03/30/2018 Screening Mammogram, Unknown. 04/10/2020 Screening Mammogram, Unknown. 10/23/2020 Left Diagnostic Mammogram, [facility]. 12/09/2021 Bilateral MG screening mammo w CAD - 2, Unknown. Tissue Density: The breast tissue is heterogeneously dense. This may lower the sensitivity of mammography. Findings: Analyzed By CAD. There is no suspicious group of microcalcifications or new suspicious mass in either breast. Benign-appearing calcifications within both breasts. Overall Assessment: Benign, BI-RAD 2 Management: Screening Mammogram of both breasts in 1 year. A clinical breast exam by your physician is recommended on an annual basis and results should be correlated with mammographic findings. Note on Emili scores and lifetime risk: 1. A Emili score greater than 3% is considered moderate risk. If this is the case, consider specialist referral to assess eligibility for a risk reducing agent. If overall lifetime risk for the development of breast cancer is 20% or higher, the patient may qualify for future screening with alternating mammogram and breast MRI. Electronically signed and approved by: Arie Nuno D.O.
== END | disposition home or self-care (01) ==
LOC: RADMAMWWP 11:08
PROVIDERS: ATTEND Family Medicine
DX: Z12.31 Encounter for screening mammogram for malignant neoplasm of breast (principal); Z78.0 Asymptomatic menopausal state; Z80.3 Family history of malignant neoplasm of breast
CPT/HCPCS: 77063; 77067

== ENCOUNTER 2023-02-27 05:54 | Day surgery (SDC) | payer MEDICARE ==
[2023-02-25 10:18] VITALS: BMI 31.9
[2023-02-27 06:37] VITALS: TEMP 97.5
[2023-02-27] MEDS: LACTATED RINGERS 1,000 ML IV SCH ×2 (06:44→07:02)
[2023-02-27] MEDS ORDERED: LIDOCAINE 2% INJ 20 MG/ML (2 ML VIAL) ONE (07:03)
[2023-02-27] MEDS ORDERED: PROPOFOL 10 MG/ML 20 ML VIAL IV ONE (07:03)
--- NOTE | 2023-02-27 07:26 | P.PCN ---
Date of Procedure: 02/27/23 Procedure(s) Performed: Brief history: Patient is a pleasant 67-year-old white female scheduled for an elective upper endoscopy as well as colonoscopy as a part of evaluation of reflux and history of GERD and change in bowel habits and alternating diarrhea and constipation for the last several months duration. Procedure performed: Esophagogastroduodenoscopy with biopsy Colonoscopy with biopsy Preoperative diagnosis: Long-standing history of GERD Change in bowel habits Anesthesia: MAC Procedure: After informed consent was obtained from the patient was brought into the endoscopy unit and IV sedation was administered by anesthesia under continuous monitoring. Initially upper endoscopy was done. The Olympus GF 160 video endoscope was inserted inserted into the mouth and esophagus intubated without any difficulty and was gradually advanced into the stomach and duodenum and carefully examined. The bulb and second part of the duodenum appeared normal. Biopsies were done from the duodenum to evaluate for celiac disease. The scope was then withdrawn into the stomach adequately insufflated with air and upon careful examination the antrum had mild gastritis. Biopsies were done from this area. Mucosa of the body, cardia and fundus appeared normal. The scope was then withdrawn into the esophagus. The GE junction was located at 40 cm to the incisors. It appeared regular with no erythema erosions or ulcerations. Rest of the esophagus appeared normal. Patient tolerated the procedure well. At this time the patient continued to remain sedation. Initial digital rectal examination was normal. Olympus CF 160 video colonoscope was then inserted into the rectum and gradually advanced to the cecum without any difficulty. Careful examination was performed as the scope was gradually being withdrawn. The prep was excellent. The cecum, ascending colon, transverse colon, descending colon, sigmoid colon and rectum appeared normal. Scattered sigmoid diverticulosis. Random biopsies were done from ascending and descending colon to evaluate for microscopic/collagenous colitis. Retroflexion was performed in the rectum and no lesions were noted. Patient tolerated the procedure well. Impression: 1. Upper endoscopy revealed mild antral gastritis but no evidence of esophagiti s or Gold's esophagus 2. Colonoscopy revealed scattered sigmoid diverticulosis but no evidence of colitis or colorectal neoplasia Recommendations: Findings of this examination were discussed with the patient as well as her family. She was advised to follow with the biopsy results. Continue with her current medications and follow antireflux measures. Recommend repeat screening colonoscopy in 10 years.
[2023-02-27 07:36] VITALS: RESP 16
[2023-02-27 08:08] VITALS: BP 154/70; PULSE 66
== END 2023-02-27 08:23 | disposition home or self-care (01) ==
LOC: ORWHC2ENDO 05:54
PROVIDERS: ATTEND Internal Medicine Gastroenterology
DX: K29.50 Unspecified chronic gastritis without bleeding (principal); K57.30 Diverticulosis of large intestine without perforation or abscess without bleeding; K21.9 Gastro-esophageal reflux disease without esophagitis; K58.9 Irritable bowel syndrome, unspecified; I10 Essential (primary) hypertension; I48.91 Unspecified atrial fibrillation; J45.909 Unspecified asthma, uncomplicated; Z79.01 Long term (current) use of anticoagulants; Z88.5 Allergy status to narcotic agent; Z79.811 Long term (current) use of aromatase inhibitors; Z79.899 Other long term (current) drug therapy; Z96.612 Presence of left artificial shoulder joint; Z98.49 Cataract extraction status, unspecified eye; Z98.51 Tubal ligation status; Z86.19 Personal history of other infectious and parasitic diseases; Z79.51 Long term (current) use of inhaled steroids
CPT/HCPCS: 88305; 45380; 43239; J2704; J2001

== ENCOUNTER → 2023-04-02 | Outpatient (CLI) | payer MEDICARE ==
[2023-04-02 13:59] LABS: African American GFR (CKD) 84 (>60 ml/min/1.73 sqM); Blood Urea Nitrogen 14 mg/dL (7-17); Non-African American GFR(CKD) 73 (>60 ml/min/1.73 sqM)
--- NOTE | 2023-04-02 15:15 | CT ---
EXAMINATION TYPE: CT angio chest DATE OF EXAM: 04/02/2023 COMPARISON: 03/18/2023 HISTORY: aortic aneurysm CT DLP: 680.10 mGycm CONTRAST: CTA thoracic aorta with 3-D reconstruction is performed and with IV Contrast, patient injected with 1 00mL mL of Isovue 370. Contrast CTA of the thoracic aorta was performed from the lung apex through the upper abdomen. 3D re construction imaging obtained at a separate workstation. CT Chest: THORACIC AORTA: There is 3.9 cm ectasia of the ascending thoracic aorta. 4 cm or greater is considere d aneurysm. Mild atheromatous changes seen. There is no evidence for dissection or periaortic collec tion. LUNGS: The lungs are clear and free of infiltrate or atelectasis. Chronic linear pleural parenchymal density at the lung bases. No pulmonary nodule or mass is detected. No pleural effusion or CT eviden ce of interstitial lung disease. MEDIASTINUM: Cystic lesion right thyroid lobe measures 1.8 cm. No evidence for mediastinal hematoma . The heart is enlarged. No evidence for mediastinal mass or adenopathy. HILAR STRUCTURES: No evidence for mass. No hilar adenopathy is appreciated. OTHER: No significant abnormality. IMPRESSION- 1.There is 3.9 cm ectasia of the ascending thoracic aorta. 4 cm or greater is considered aneurysm.
== END | disposition home or self-care (01) ==
LOC: RADCTMAIN 13:21
PROVIDERS: ATTEND Internal Medicine Interventional Cardiology
DX: I71.21 Aneurysm of the ascending aorta, without rupture (principal)
CPT/HCPCS: 82565; 84520; 71275; 36415; Q9967

== ENCOUNTER → 2023-12-11 | Outpatient (CLI) | payer MEDICARE ==
--- NOTE | 2023-12-11 15:14 | XR ---
EXAMINATION TYPE: XR ribs LT w pa chest xray DATE OF EXAM: 12/11/2023 COMPARISON: None HISTORY: Chest wall pain TECHNIQUE: two view left ribs with chest xray FINDINGS: Heart size is normal. Pulmonary vasculature is normal. Lungs are clear. No displaced rib fractures evident. IMPRESSION: 1. No acute rib fractures. 2. No acute pulmonary process
== END | disposition home or self-care (01) ==
LOC: RADXRMAIN 12:44
PROVIDERS: ATTEND Family Medicine
DX: R07.89 Other chest pain (principal)

== ENCOUNTER → 2024-01-07 | Outpatient (CLI) | payer MEDICARE ==
--- NOTE | 2024-01-07 15:17 | CT ---
EXAMINATION TYPE: CT chest wo con DATE OF EXAM: 01/07/2024 COMPARISON: 04/02/2023. HISTORY: Mid-Left side rib pain x [address] months[address] No known injury. CT DLP: 438.[address] of the chest was performed with lung and mediastinal window settings submitted. The la ck of contrast limits evaluation of the vascular, mediastinal and parenchymal structures including th e upper abdomen. LUNGS: The lungs are clear and free of infiltrate. No atelectasis. No pulmonary nodule or mass is de tected. No pleural effusion. No CT evidence of interstitial lung disease. MEDIASTINUM/ESTHER: Thoracic aorta is of normal caliber with limited evaluation given lack of contrast . The heart is mildly enlarged. No evidence for mediastinal mass. No lymph nodes greater than 1cm . Prominence of the pulmonary arteries may reflect a degree of pulmonary arterial hypertension. UPPER ABDOMEN: No significant abnormality is seen. OTHER: No significant other abnormality. IMPRESSION: 1. No significant abnormality to account for the patient's symptoms. Prominence of the pulmonary art eries may reflect a degree of pulmonary arterial hypertension.
== END | disposition home or self-care (01) ==
LOC: RADCTMAIN 13:36
PROVIDERS: ATTEND Family Medicine
DX: R07.89 Other chest pain (principal); R05.3 Chronic cough
CPT/HCPCS: 71250

== ENCOUNTER → 2024-01-21 | Outpatient (CLI) | payer MEDICARE, OTHER ==
--- NOTE | 2024-02-16 11:30 | MM ---
Reason for Exam: Screening (asymptomatic). Last mammogram was performed 1 year(s) and 1 month(s) ago. Patient History: Menarche at age 14. First Full-Term at age 18. Postmenopausal. Benign Cyst Aspiration on the left side. Benign Excisional Biopsy on the right side. Mother had breast cancer, age 65. Risk Values: Xiomy 5 year model risk: 3.4%. NCI Lifetime model risk: 10.4%. Prior Study Comparison: 03/30/2018 Screening Mammogram, Unknown. 04/10/2020 Screening Mammogram, Unknown. 10/23/2020 Left Diagnostic Mammogram, [facility]. 12/09/2021 Bilateral MG screening mammo w CAD - 2, Unknown. 12/24/2022 Bilateral MG 3D screening mammo w/cad, [facility]. Tissue Density: There are scattered areas of fibroglandular density. Findings: Analyzed By CAD. More rounded appearance to an asymmetric density subareolar left breast a few for which further evaluation is recommended. Otherwise, no significant change. Overall Assessment: Incomplete: need additional imaging evaluation, BI-RAD 0 Management: Special View Mammogram of the left breast. [facility] will attempt to contact patient to return for supplemental views and ultrasound if indicated. NOTE ON XIOMY SCORES AND LIFETIME RISK: 1. A Xiomy score greater than 3% is considered moderate risk. If this is the case, consider specialist referral to assess eligibility for a risk reducing agent. 2. If overall lifetime risk for the development of breast cancer is 20% or higher, the patient may qualify for future screening with alternating mammogram and breast MRI. Electronically signed and approved by: John Rasheed M.D. Radiologist
== END | disposition home or self-care (01) ==
LOC: RADMAMWWP 12:58
PROVIDERS: ATTEND Family Medicine
DX: Z12.31 Encounter for screening mammogram for malignant neoplasm of breast (principal); R92.323 Mammographic fibroglandular density, bilateral breasts; Z80.3 Family history of malignant neoplasm of breast; Z78.0 Asymptomatic menopausal state
CPT/HCPCS: 77063; 77067

== ENCOUNTER → 2024-01-25 | Outpatient (CLI) | payer MEDICARE, OTHER ==
--- NOTE | 2024-02-16 16:00 | US ---
Site ID [facility] Patient Carmencita Donovan ID [id number] Age/Gender: 68Y, F Order # N/A Procedure US Abdomen Limited Date 01/25/2024 9:17:00 AM INDICATION: Patient age: Female; 68 year old; Reason for study: Chronic viral hepatitis C COMPARISON: CT abdomen and pelvis 11/11/2022, liver ultrasound 07/02/2022, 07/01/2021. TECHNIQUE: Multiple grayscale and color doppler ultrasound images of the right upper abdomen obtained utilizing transabdominal imaging. Delayed interpretation due to institutional cyber attack. FINDINGS: PANCREAS: The visualized portions of the pancreas are unremarkable. Limited visualization of the pancreatic monica l due to overlying bowel gas. LIVER: The liver demonstrates a coarsened echotexture. There is no evidence of dilated ducts, cystic structu res, or solid mass. Liver measures 17.3 cm in greatest dimension. GALLBLADDER: The gallbladder is surgically removed. The common duct measures approximately 4 mm. RIGHT KIDNEY: The right kidney measures 9.2 x 4.1 x 3.6 cm, without evidence of hydronephrosis, shadowing calculus, or contour deforming solid mass. Renal parenchymal echogenicity is within normal limits. IMPRESSION: Coarsened liver echotexture without overt cirrhosis. No ultrasound evidence for focal hepatic lesion.
== END | disposition home or self-care (01) ==
LOC: RADUSWWP 09:10
PROVIDERS: ATTEND Internal Medicine Gastroenterology
DX: B18.2 Chronic viral hepatitis C (principal)
CPT/HCPCS: 76705

== ENCOUNTER → 2024-02-19 | Outpatient (CLI) | payer MEDICARE ==
--- NOTE | 2024-02-19 10:44 | MM ---
Reason for Exam: Additional evaluation requested from abnormal screening. Last screening mammogram was performed less than 1 month ago. Patient History: Menarche at age 14. First Full-Term at age 18. Postmenopausal. Benign Cyst Aspiration on the left side. Benign Excisional Biopsy on the right side. Mother had breast cancer, age 65. Risk Values: Emili 5 year model risk: 3.4%. NCI Lifetime model risk: 10.4%. Prior Study Comparison: 12/09/2021 Bilateral MG screening mammo w CAD - 2, Unknown. 12/24/2022 Bilateral MG 3D screening mammo w/cad, [facility]. 01/21/2024 Bilateral MG 3D screening mammo w/cad, [facility]. Tissue Density: Left: There are scattered areas of fibroglandular density. Findings: Analyzed By CAD. The questioned area of subareolar asymmetric density disperses on additional views. Findings compatible with superimposition shadow. Overall Assessment: Benign, BI-RAD 2 Management: Screening Mammogram of both breasts in 1 year. See note below in regards to patient's increased 5 year Emili score. Results were given to the patient verbally at the time of exam. Patient should continue monthly self-breast exams. A clinical breast exam by your physician is recommended on an annual basis. This exam should not preclude additional follow-up of suspicious palpable abnormalities. Note on Emili scores and lifetime risk: 1. A Emili score greater than 3% is considered moderate risk. If this is the case, consider specialist referral to assess eligibility for a risk reducing agent. 2. If overall lifetime risk for the development of breast cancer is 20% or higher, the patient may qualify for future screening with alternating mammogram and breast MRI. Electronically signed and approved by: John Rasheed M.D. Radiologist
== END | disposition home or self-care (01) ==
LOC: RADMAMWWP 10:03
PROVIDERS: ATTEND Family Medicine
DX: R92.8 Other abnormal and inconclusive findings on diagnostic imaging of breast
CPT/HCPCS: 77061; 77065

== ENCOUNTER → 2024-03-07 | Outpatient (CLI) | payer MEDICARE ==
[2024-03-07 15:37] LABS: C Reactive Protein <0.30 mg/dL (0.00-0.80); Rheumatoid Factor, Qnt 17 IU/mL (0-15)
== END | disposition home or self-care (01) ==
LOC: LABWHC1 11:17
PROVIDERS: ATTEND Internal Medicine Critical Care Medicine
DX: R07.89 Other chest pain (principal)
CPT/HCPCS: 36415; 85652; 86038; 86140; 86431

== ENCOUNTER → 2025-01-17 | Outpatient (CLI) | payer MEDICARE, OTHER ==
--- NOTE | 2025-01-17 13:51 | US ---
EXAMINATION TYPE: US liver DATE OF EXAM: 01/17/2025 COMPARISON: 01/25/2024 CLINICAL INDICATION: Female, 69 years old with history of B18.2 CHRONIC VIRAL HEP C; f/u TECHNIQUE: Grayscale and color Doppler imaging of the right upper quadrant. FINDINGS: EXAM MEASUREMENTS: Liver Length: 17.6 cm Gallbladder Wall: Surgically absent cm CBD: 0.8 cm, color Doppler imaging was utilized to isolate the common bile duct for measurement. Right Kidney: 8.9x4.2x4.3 cm RECORDER OF DEEDS NOTES: slightly limited due to overlying gas Pancreas: Tail obscured by overlying bowel gas Liver: Enlarged, Heterogenous course echotexture, slightly difficult to penetrate Gallbladder: Surgically absent Evidence for sonographic Chacon's sign: No CBD: wnl Right Kidney: No hydronephrosis or masses seen IMPRESSION: 1. Hepatomegaly correlate for underlying hepatocellular disease or hepatic steatosis. [facility] Domi Valencia, , 01/17/2025 1:48 PM
[2025-01-17 19:09] LABS: HCT 43.2 % (37.2-46.3); HGB 15.1 g/dL (12.0-15.0); MCH 29.4 pg (27.0-32.0); MCHC 35.0 g/dL (32.0-37.0); MCV 84.2 FL (80.0-97.0); NRBC Per 100 WBC 0 X 10*3/uL (0.00-0.01); Platelet Count 231 X 10*3/uL (140-440); RBC 5.13 X 10*6/uL (4.10-5.20); RDW 13.7 % (11.5-14.5); WBC 6.98 X 10*3/uL (4.50-10.00)
[2025-01-17 19:29] LABS: ALT 14.0 U/L (8-44); AST 21.0 U/L (13-35); Albumin 4.3 g/dL (3.8-4.9); Albumin/Globulin Ratio 1.79 Ratio (1.60-3.17); Alkaline Phosphatase 80.0 U/L (41-126); Bilirubin,Unconjugated 0.37 mg/dL (0.20-1.00); Globulin 2.4 g/dL (1.6-3.3); Total Protein 6.7 g/dL (6.2-8.2)
== END | disposition home or self-care (01) ==
LOC: RADUSWWP 12:22
PROVIDERS: ATTEND Internal Medicine Gastroenterology
DX: B18.2 Chronic viral hepatitis C (principal); R16.0 Hepatomegaly, not elsewhere classified
CPT/HCPCS: 76705; 80076; 82105; 85027